=== PATIENT | male | born 1985 | race Caucasian/White ===

== ENCOUNTER 2016-12-02 07:38 | Emergency (ER) | payer MEDICARE, BC, MEDICAID ==
[2016-12-02 07:53] VITALS: BP 115/83
[2016-12-02] MEDS ORDERED: FENTANYL 50 MCG/HR PATCH.TD72 TD ONE (08:22)
--- NOTE | 2016-12-02 08:24 | ER Document Report ---
ED General - General Chief Complaint: Medication Refill Stated Complaint: MEDICATION REFILL Time Seen by Provider: 12/02/16 08:09 TRAVEL OUTSIDE OF THE [place] IN LAST 30 DAYS: No - HPI Patient complains to provider of: Medication refill Notes: Patient coming in for evaluation for medication refill. Patient states he has stage IV cancer as prescribed oral narcotics and fentanyl patches however is missing some of his fentanyl patches. Patient states he removed the spindle patch yesterday currently running out otherwise states having arthralgias and otherwise feeling unwell. Patient states has an appointment to see follow-up with his pain management clinic today. Patient otherwise states no other complaints denies fevers chills nausea vomiting diarrhea. - Related Data Allergies/Adverse Reactions: moxifloxacin HCl [From Avelox] Allergy (Verified 12/02/16 07:52) lorazepam [From Ativan] Adverse Reaction (Verified 12/02/16 07:52) Past Medical History - Social History Smoking Status: Unknown if Ever Smoked Family History: Reviewed & Not Pertinent Pulmonary Medical History: Reports: Hx Asthma Renal/ Medical History: Denies: Hx Peritoneal Dialysis - Immunizations Hx Diphtheria, Pertussis, Tetanus Vaccination: Yes Review of Systems - Review of Systems Constitutional: Other - Medication refill EENT: No symptoms reported Cardiovascular: No symptoms reported Respiratory: No symptoms reported Gastrointestinal: No symptoms reported Genitourinary: No symptoms reported Male Genitourinary: No symptoms reported Musculoskeletal: No symptoms reported Skin: No symptoms reported Hematologic/Lymphatic: No symptoms reported Neurological/Psychological: No symptoms reported Physical Exam - Vital signs Vitals: Temp Pulse Resp BP Pulse Ox 98.4 F 83 18 115/83 95 12/02/16 07:50 12/02/16 07:50 12/02/16 07:50 12/02/16 07:50 12/02/16 07:50 Interpretation: Normal - General General appearance: Appears well, Alert - HEENT Head: Normocephalic, Atraumatic Eyes: Normal Pupils: PERRL - Respiratory Respiratory status: No respiratory distress Chest status: Nontender Breath sounds: Normal Chest palpation: Normal - Cardiovascular Rhythm: Regular Heart sounds: Normal auscultation Murmur: No - Abdominal Inspection: Normal Distension: No distension Bowel sounds: Normal Tenderness: Nontender Organomegaly: No organomegaly - Back Back: Normal, Nontender - Extremities General upper extremity: Normal inspection, Nontender, Normal color, Normal ROM , Normal temperature General lower extremity: Normal inspection, Nontender, Normal color, Normal ROM , Normal temperature, Normal weight bearing. No: Ricardo's sign - Neurological Neuro grossly intact: Yes Cognition: Normal Orientation: AAOx4 [place] Coma Scale Eye Opening: Spontaneous Page Coma Scale Verbal: Oriented [place] Coma Scale Motor: Obeys Commands [place] Coma Scale Total: 15 Speech: Normal Motor strength normal: LUE, RUE, LLE, RLE Sensory: Normal - Psychological Associated symptoms: Normal affect, Normal mood - Skin Skin Temperature: Warm Skin Moisture: Dry Skin Color: Normal Course - Re-evaluation Re-evalutation: 12/02/16 14:04 I examined the patient's torso and found no signs of fentanyl patches. Explained to the patient our analgesia policy and did give him a copy of our pain management policy. I explained to the patient that I will give him one single patch here in the ER to last him for the next 3 days days his responsibility to follow-up with his pain management clinic. Patient states understanding. - Vital Signs Vital signs: Temp Pulse Resp BP Pulse Ox 98.4 F 83 18 115/83 95 12/02/16 07:50 12/02/16 07:50 12/02/16 07:50 12/02/16 07:50 12/02/16 07:50 Discharge - Discharge Clinical Impression: Opiate dependence Qualifiers: Substance use status: uncomplicated Qualified Code(s): F11.20 - Opioid dependence, uncomplicated Disposition: HOME, SELF-CARE Additional Instructions: We do not refill chronic opiate medications here in the ER. I will give you a fentanyl patch for your today please make sure to follow-up with your pain management it is their responsibility to refill and managing your narcotic pain medication.
== END 2016-12-02 08:35 | disposition home or self-care (01) ==
LOC: ER 07:38
DX: F11.20 Opioid dependence, uncomplicated (principal)
CPT/HCPCS: 99281; J3490

== ENCOUNTER 2017-06-16 08:13 | Emergency (ER) | payer MEDICARE, BC, MEDICAID ==
[2017-06-16] MEDS ORDERED: KETOROLAC TROMETHAMINE INJ/PF 30 MG/1 ML SDV IV ONE (08:50)
[2017-06-16 09:02] LABS: ABSOLUTE BASOPHILS # (AUTO) 0.1 10^3/uL (0.0-0.2); ABSOLUTE EOSINOPHILS # (AUTO) 0.4 10^3/uL (0.0-0.6); ABSOLUTE LYMPHOCYTES (AUTO) 1.4 10^3/uL (0.5-4.7); ABSOLUTE MONOCYTES (AUTO) 0.7 10^3/uL (0.1-1.4); ABSOLUTE NEUT (AUTO) 10.2 10^3/uL (1.7-8.2); BASOPHILS % (AUTO) 0.5 % (0-2); EOSINOPHILS % (AUTO) 2.8 % (0-6); HEMATOCRIT 48.8 % (37.9-51.0); HEMOGLOBIN 16.6 g/dL (13.5-17.0); LYMPHOCYTES % (AUTO) 11.3 % (13-45); MEAN CORPUSCULAR HGB CONC 33.9 g/dL (32.0-36.0); MEAN CORPUSCULAR VOLUME 88 fl (80-97); MONOCYTES % (AUTO) 5.5 % (3-13); PLATELET COUNT 215 10^3/uL (150-450); RED BLOOD COUNT 5.52 10^6/uL (4.35-5.55); RED CELL DISTRIBUTION WIDTH 13.5 % (11.5-14.0); SEGMENTED NEUTROPHILS % (AUTO) 79.9 % (42-78); TOTAL CELLS COUNTED % (AUTO) 100 %; WHITE BLOOD COUNT 12.8 10^3/uL (4.0-10.5)
[2017-06-16] MEDS: NORMAL SALINE 1000 ML 1,000 ML IV PRN ×2 (09:02→10:31)
[2017-06-16 09:08] LABS: ANION GAP 12 (5-19); BLOOD UREA NITROGEN 23 mg/dL (7-20); CALCIUM 10.4 mg/dL (8.4-10.2); CARBON DIOXIDE 28 mmol/L (22-30); CHLORIDE 103 mmol/L (98-107); GLUCOSE 121 mg/dL (75-110); POTASSIUM 4.1 mmol/L (3.6-5.0); SODIUM 142.8 mmol/L (137-145)
--- NOTE | 2017-06-16 09:59 | RADIOLOGY REPORT (SQ) ---
EXAM DESCRIPTION: ACUTE ABDOMEN SERIES COMPLETED DATE/TIME: 06/16/2017 9:39 am REASON FOR STUDY: sob COMPARISON: CT abdomen pelvis 03/27/2014 AP chest 09/18/2010 NUMBER OF VIEWS: Three views. TECHNIQUE: Frontal chest, supine abdomen and upright abdomen radiographic images acquired. LIMITATIONS: None. FINDINGS: CHEST: Patient has a left-sided diaphragmatic hernia seen on prior CT exam 03/27/2014. This likely contains colon and small bowel. This is similar compared to studies from 2014. Right lung well inflated and clear. No right or left pneumothorax or pleural effusion FREE AIR: None. No abnormal gas collections. BOWEL GAS PATTERN: Nonobstructive pattern. No dilated loops or air fluid levels. CALCIFICATIONS: No suspicious calcifications. HARDWARE: None in the abdomen. SOFT TISSUES: No gross mass or suggestion of organomegaly. BONES: No acute fracture. No worrisome bone lesions. OTHER: No other significant finding. 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 Abdominal films show no gross bowel obstruction Findings are similar compared to studies from 2014 and 2010 TECHNICAL DOCUMENTATION: JOB ID: [id number] [employer]- All Rights Reserved Reading location - IP/workstation name: [email or web address]
[2017-06-16 10:26] LABS: APPEARANCE,URINE CLOUDY; BILIRUBIN,URINE NEGATIVE (NEGATIVE); COLOR,URINE DARK YELLOW; GLUCOSE, URINE NEGATIVE (NEGATIVE); KETONES,URINE NEGATIVE (NEGATIVE); LEUKOCYTE ESTERASE,URINE NEGATIVE (NEGATIVE); NITRITE,URINE NEGATIVE (NEGATIVE); PROTEIN,URINE 100 mg/dL (NEGATIVE); URINE SPECIFIC GRAVITY 1.025; UROBILINOGEN,URINE NEGATIVE mg/dL (<2.0)
[2017-06-16 10:29] LABS: URINE AMPHETAMINES SCREEN NEGATIVE; URINE BARBITURATES SCREEN NEGATIVE; URINE BENZODIAZEPINES SCREEN NEGATIVE; URINE COCAINE SCREEN NEGATIVE; URINE MARIJUANA (THC) SCREEN NEGATIVE; URINE METHADONE SCREEN NEGATIVE; URINE PHENCYCLIDINE SCREEN NEGATIVE
--- NOTE | 2017-06-16 11:14 | ER Document Report ---
ED General - General Chief Complaint: Abdominal Pain Stated Complaint: ABDOMINAL PAIN Time Seen by Provider: 06/16/17 08:22 TRAVEL OUTSIDE OF THE [place] IN LAST 30 DAYS: No - HPI Patient complains to provider of: Lower abdominal pain Notes: Patient coming in for lower abdominal pain ongoing since 4:00 this morning. Denies any fevers chills nausea vomiting. Patient states the pain is very intense to a Percocet that he has at home. Patient states any difficulty in urination or last few days. Patient resting comfortably upon my evaluation. - Related Data Allergies/Adverse Reactions: moxifloxacin HCl [From Avelox] Allergy (Verified 06/16/17 08:28) lorazepam [From Ativan] Adverse Reaction (Verified 06/16/17 08:28) Past Medical History - Social History Smoking Status: Current Every Day Smoker Frequency of alcohol use: None Drug Abuse: None Family History: Reviewed & Not Pertinent Patient has suicidal ideation: No Patient has homicidal ideation: No Pulmonary Medical History: Reports: Hx Asthma Renal/ Medical History: Denies: Hx Peritoneal Dialysis - Immunizations Hx Diphtheria, Pertussis, Tetanus Vaccination: Yes Review of Systems - Review of Systems Constitutional: No symptoms reported EENT: No symptoms reported Cardiovascular: No symptoms reported Respiratory: No symptoms reported Gastrointestinal: Abdominal pain Genitourinary: No symptoms reported Male Genitourinary: No symptoms reported Musculoskeletal: No symptoms reported Skin: No symptoms reported Hematologic/Lymphatic: No symptoms reported Neurological/Psychological: No symptoms reported -: Yes All other systems reviewed and negative Physical Exam - Vital signs Vitals: Temp Pulse Resp BP Pulse Ox 98.0 F 76 20 127/81 H 97 06/16/17 08:15 06/16/17 08:15 06/16/17 08:15 06/16/17 08:15 06/16/17 08:15 Interpretation: Normal - General General appearance: Appears well, Alert - HEENT Head: Normocephalic, Atraumatic Eyes: Normal Pupils: PERRL - Respiratory Respiratory status: No respiratory distress Chest status: Nontender Breath sounds: Normal Chest palpation: Normal - Cardiovascular Rhythm: Regular Heart sounds: Normal auscultation Murmur: No - Abdominal Inspection: Normal Distension: No distension Bowel sounds: Normal Tenderness: Nontender Organomegaly: No organomegaly - Back Back: Normal, Nontender - Extremities General upper extremity: Normal inspection, Nontender, Normal color, Normal ROM , Normal temperature General lower extremity: Normal inspection, Nontender, Normal color, Normal ROM , Normal temperature, Normal weight bearing. No: Ricardo's sign - Neurological Neuro grossly intact: Yes Cognition: Normal Orientation: AAOx4 [place] Coma Scale Eye Opening: Spontaneous [place] Coma Scale Verbal: Oriented [place] Coma Scale Motor: Obeys Commands [place] Coma Scale Total: 15 Speech: Normal Motor strength normal: LUE, RUE, LLE, RLE Sensory: Normal - Psychological Associated symptoms: Normal affect, Normal mood - Skin Skin Temperature: Warm Skin Moisture: Dry Skin Color: Normal Course - Re-evaluation Re-evalutation: 06/16/17 15:26 The patient presents with abdominal pain without signs of peritonitis or other life-threatening or serious etiology. The patient appears stable for discharge and has been instructed to return immediately if the symptoms worsen in any way , or in 8-12hr if not improved for re-evaluation. The patient has been instructed to return if the symptoms worsen or change in any way. Urinalysis does show signs of hematuria do not no signs of any overt infection. Because of lower abdominal pain hematuria possibility of underlying kidney stone however no renal failure do not see need for a CAT scan at this time. Patient afebrile no signs of urosepsis. Patient will be given Flomax Zofran and encouraged to continue take his prescribed opiate medication. Pain-free after a single dose of ketorolac here. - Vital Signs Vital signs: Temp Pulse Resp BP Pulse Ox 98.0 F 78 20 102/85 98 06/16/17 11:29 06/16/17 11:29 06/16/17 11:29 06/16/17 11:29 06/16/17 11:29 - Laboratory Result Diagrams: 06/16/17 07:55 06/16/17 07:55 Laboratory results interpreted by me: 06/16/17 06/16/17 06/16/17 07:55 07:55 09:32 WBC 12.8 H Seg Neutrophils % 79.9 H Lymphocytes % 11.3 L Absolute Neutrophils 10.2 H BUN 23 H Glucose 121 H Calcium 10.4 H Urine Protein 100 H Urine Blood LARGE H Discharge - Discharge Clinical Impression: Dehydration Hematuria Qualifiers: Hematuria type: unspecified type Qualified Code(s): R31.9 - Hematuria, unspecified Abdominal pain Qualifiers: Abdominal location: unspecified location Qualified Code(s): R10.9 - Unspecified abdominal pain Condition: Good Disposition: HOME, SELF-CARE Instructions: Abdominal Pain ([facility]), Dehydration ([facility]), Hematuria ([facility]) Additional Instructions: Evaluation today is consistent with dehydration. He did have some blood in your urine which can be caused by a kidney stone causing some your pain or hematuria due to dehydration. The only way to prove that you do do not have a kidney stone with to be perform a CAT scan which would involve a lot of radiation. This would not change consultant plan dyspnea with medication Flomax and Zofran. Otherwise there is no signs of overt infection. I recommend that we continue home on medication called Flomax in case there is underlying kidney stone also recommend that wheezing home with medication for nausea. Please continue your home medications as prescribed. Follow-up with your pain management as needed. Prescriptions: Ondansetron [Zofran Odt 4 mg Tablet] 4 mg PO Q4HP PRN #30 tab.rapdis PRN Reason: Tamsulosin HCl [Flomax 0.4 mg Cap.sr] 0.4 mg PO DAILY #10 cap.sr.24h Forms: Return to Work
[2017-06-16 11:42] VITALS: BP 102/85
== END 2017-06-16 11:42 | disposition home or self-care (01) ==
LOC: ER 08:13
DX: R10.30 Lower abdominal pain, unspecified (principal); R31.9 Hematuria, unspecified; E86.0 Dehydration; F17.200 Nicotine dependence, unspecified, uncomplicated; J45.909 Unspecified asthma, uncomplicated; Z88.1 Allergy status to other antibiotic agents
CPT/HCPCS: 99284; 96361; 96374; 36415; 85025; 80048; 81001; 80307; 74022; J1885; J7030

== ENCOUNTER 2017-10-14 13:06 | Emergency (ER) | payer MEDICARE, BC, MEDICAID ==
[2017-10-14 13:32] VITALS: BP 134/91
[2017-10-14 14:37] LABS: APPEARANCE,URINE CLEAR; BILIRUBIN,URINE NEGATIVE (NEGATIVE); COLOR,URINE YELLOW; GLUCOSE, URINE NEGATIVE (NEGATIVE); KETONES,URINE NEGATIVE (NEGATIVE); LEUKOCYTE ESTERASE,URINE NEGATIVE (NEGATIVE); NITRITE,URINE NEGATIVE (NEGATIVE); PROTEIN,URINE NEGATIVE (NEGATIVE); URINE SPECIFIC GRAVITY 1.012; UROBILINOGEN,URINE NEGATIVE mg/dL (<2.0)
--- NOTE | 2017-10-14 15:04 | RADIOLOGY REPORT (SQ) ---
EXAM DESCRIPTION: L SPINE WHOLE COMPLETED DATE/TIME: 10/14/2017 2:52 pm REASON FOR STUDY: back pain COMPARISON: None. NUMBER OF VIEWS: Five views including obliques. TECHNIQUE: AP, lateral, oblique, and sacral radiographic images acquired of the lumbar spine. LIMITATIONS: None. FINDINGS: SEGMENTATION: 5 lumbar type vertebra. ALIGNMENT: Lumbar scoliosis convex left. VERTEBRAE/DISC: Minimal lumbar spondylosis. Degenerative disc disease L4-S1. No spondylolysis or s pondylolisthesis. PELVIS: Intact as visualized. No fractures or worrisome bone lesions. SI joints in tact. IMPRESSION: Lumbar spondylosis and degenerative disc disease L4-S1. TECHNICAL DOCUMENTATION: JOB ID: [id number] [id number] 2010 [employer]- All Rights Reserved Reading location - IP/workstation name: [email or web address]
--- NOTE | 2017-10-14 15:22 | RADIOLOGY REPORT (SQ) ---
EXAM DESCRIPTION: ACUTE ABDOMEN SERIES COMPLETED DATE/TIME: 10/14/2017 3:01 pm REASON FOR STUDY: back pain/constipation COMPARISON: Abdominal series 06/16/2017. CT abdomen and pelvis 03/27/2014. Chest x-ray 09/18/2010 NUMBER OF VIEWS: Three views. TECHNIQUE: Frontal chest, supine abdomen and upright/decubitus abdomen radiographic images acquired. LIMITATIONS: None. FINDINGS: CHEST: Known large mass at the left hemithorax measuring 16.5 x 10.7 cm. No new consolida tion, pleural effusion or pneumothorax. FREE AIR: None. BOWEL GAS PATTERN: Nonobstructive pattern. No dilated loops or air fluid levels. CALCIFICATIONS: No suspicious calcifications. HARDWARE: None in the abdomen. SOFT TISSUES: No gross mass or suggestion of organomegaly. BONES: There is thoracolumbar scoliosis. IMPRESSION: 1. Nonobstructive bowel gas pattern. 2. Known mass at the left hemithorax. TECHNICAL DOCUMENTATION: JOB ID: [id number] 2010 [employer]- All Rights Reserved Reading location - IP/workstation name: [email or web address]
[2017-10-14] MEDS ORDERED: KETOROLAC TROMETHAMINE 60 MG/2 ML SDV IM ONE (15:38)
[2017-10-14] MEDS ORDERED: LIDOCAINE 5% (700 MG) TRANSDERMAL ADH..PATCH TP ONE (15:38)
--- NOTE | 2017-10-14 15:48 | ER Document Report ---
ED General - General Chief Complaint: Back Pain Stated Complaint: BACK PAIN Time Seen by Provider: 10/14/17 14:34 TRAVEL OUTSIDE OF THE [place] IN LAST 30 DAYS: No - HPI Patient complains to provider of: Low back pain Notes: Patient coming in amatory with low back pain. Patient states ongoing for approximate 24-48 hours. Patient states he is concerned as he might have a bowel blockage as he is on chronic opioid therapy taking the Vantin however only has small bowel movement yesterday. Denies any nausea vomiting denies any fevers chills diarrhea loss of bowel or bladder function - Related Data Allergies/Adverse Reactions: moxifloxacin HCl [From Avelox] Allergy (Verified 10/14/17 13:10) lorazepam [From Ativan] Adverse Reaction (Verified 10/14/17 13:10) Past Medical History - Social History Smoking Status: Current Every Day Smoker Chew tobacco use (# tins/day): No Frequency of alcohol use: None Drug Abuse: None Family History: Reviewed & Not Pertinent Patient has suicidal ideation: No Patient has homicidal ideation: No Pulmonary Medical History: Reports: Hx Asthma Renal/ Medical History: Denies: Hx Peritoneal Dialysis - Immunizations Hx Diphtheria, Pertussis, Tetanus Vaccination: Yes Review of Systems - Review of Systems Constitutional: No symptoms reported EENT: No symptoms reported Cardiovascular: No symptoms reported Respiratory: No symptoms reported Gastrointestinal: No symptoms reported Genitourinary: No symptoms reported Male Genitourinary: No symptoms reported Musculoskeletal: Back pain Skin: No symptoms reported Hematologic/Lymphatic: No symptoms reported Neurological/Psychological: No symptoms reported -: Yes All other systems reviewed and negative Physical Exam - Vital signs Vitals: Temp Pulse Resp BP Pulse Ox 98.6 F 75 16 134/91 H 94 10/14/17 13:30 10/14/17 13:30 10/14/17 13:30 10/14/17 13:30 10/14/17 13:30 Interpretation: Normal - General General appearance: Appears well, Alert - HEENT Head: Normocephalic, Atraumatic Eyes: Normal Pupils: PERRL - Respiratory Respiratory status: No respiratory distress Chest status: Nontender Breath sounds: Normal Chest palpation: Normal - Cardiovascular Rhythm: Regular Heart sounds: Normal auscultation Murmur: No - Abdominal Inspection: Normal Distension: No distension Bowel sounds: Normal Tenderness: Nontender Organomegaly: No organomegaly - Back Back: Normal, Tender - Extremities General upper extremity: Normal inspection, Nontender, Normal color, Normal ROM , Normal temperature General lower extremity: Normal inspection, Nontender, Normal color, Normal ROM , Normal temperature, Normal weight bearing. No: Ricardo's sign - Neurological Neuro grossly intact: Yes Cognition: Normal Orientation: AAOx4 [place] Coma Scale Eye Opening: Spontaneous Page Coma Scale Verbal: Oriented [place] Coma Scale Motor: Obeys Commands [place] Coma Scale Total: 15 Speech: Normal Motor strength normal: LUE, RUE, LLE, RLE Sensory: Normal - Psychological Associated symptoms: Normal affect, Normal mood - Skin Skin Temperature: Warm Skin Moisture: Dry Skin Color: Normal Course - Re-evaluation Re-evalutation: 10/14/17 15:48 The patient presents with low back pain without signs of spinal cord compression , cauda equina syndrome, infection, aneurysm, or other serious etiology. The patient is neurologically intact. Given the extremely low risk of these diagnoses further testing and evaluation for these possibilities does not appear to be indicated at this time. The patient has been instructed to return if the symptoms worsen or change in any way. - Vital Signs Vital signs: Temp Pulse Resp BP Pulse Ox 98.6 F 75 16 134/91 H 94 10/14/17 13:30 10/14/17 13:30 10/14/17 13:30 10/14/17 13:30 10/14/17 13:30 Discharge - Discharge Clinical Impression: Back pain Qualifiers: Back pain location: low back pain Chronicity: unspecified Back pain laterality : unspecified Sciatica presence: unspecified whether sciatica present Qualified Code(s): M54.5 - Low back pain Condition: Good Disposition: HOME, SELF-CARE Instructions: Low Back Pain ([facility]) Additional Instructions: Your x-rays today did not show any signs of small bowel obstruction overt constipation. There is a lot of gas throughout the colon itself on the right side there is a mild amount of stool. Please continue to take advantage can make sure you are drinking plenty water if he continues to not have a bowel movement the next 24 hours would recommend trying the [employer]. Also recommend taking Motrin and Tylenol for your pain control as well as her chronic pain medication. Return to ER symptoms worsen follow-up with your primary care physician. Prescriptions: Ibuprofen [Motrin 600 mg Tablet] 600 mg PO Q8HP PRN #21 tablet PRN Reason: Sennosides/Docusate Sodium [Senna-S Tablet] 1 each PO DAILY #14 tablet Forms: Return to Work
== END 2017-10-14 16:02 | disposition home or self-care (01) ==
LOC: ER 13:06
DX: M54.5 Low back pain (principal); F17.200 Nicotine dependence, unspecified, uncomplicated; J45.909 Unspecified asthma, uncomplicated; Z79.891 Long term (current) use of opiate analgesic; Z88.1 Allergy status to other antibiotic agents
CPT/HCPCS: 99283; 96372; 81001; 74022; 72110; J1885

== ENCOUNTER 2017-11-08 20:10 | Emergency (ER) | payer MEDICARE, BC, MEDICAID ==
[2017-11-08 20:28] VITALS: BP 115/74
[2017-11-08] MEDS ORDERED: LIDOCAINE 5% (700 MG) TRANSDERMAL ADH..PATCH TP ONE (22:09)
[2017-11-08] MEDS ORDERED: KETOROLAC TROMETHAMINE 60 MG/2 ML SDV IM ONE (22:10)
--- NOTE | 2017-11-08 22:13 | ER Document Report ---
HPI - HPI Pain Level: 3 Notes: Patient is a 32-year-old male who presents with chief complaint of request for medication refill. Patient reports that he takes oxycodone 15 mg tablets. He reports he takes 2 tablets 3 times daily. Patient reports he sees pain management for these and he took extra so he has run out 2 days early. Patient reports he has already talked to pain management who told him he cannot fill his next prescription until Sunday. Patient reports general pain all over, denies any specific new or acute injury. Patient reports he does think he is in withdrawal. Patient does not have any symptoms of withdrawal at the time of my assessment. Past Medical History - General Information source: Patient - Social History Smoking Status: Current Every Day Smoker Chew tobacco use (# tins/day): No Frequency of alcohol use: None Drug Abuse: None Family History: Reviewed & Not Pertinent Patient has suicidal ideation: No Patient has homicidal ideation: No Pulmonary Medical History: Reports: Hx Asthma Renal/ Medical History: Denies: Hx Peritoneal Dialysis Surgical Hx: Negative - Immunizations Immunizations up to date: Yes Hx Diphtheria, Pertussis, Tetanus Vaccination: Yes Vertical Provider Document - CONSTITUTIONAL Notes: PHYSICAL EXAMINATION: GENERAL: Well-appearing, well-nourished and in no acute distress. HEAD: Atraumatic, normocephalic. EYES: Pupils equal round extraocular movements intact, conjunctiva are normal. ENT: Nares patent NECK: Normal range of motion LUNGS: No respiratory distress Musculoskeletal: Normal range of motion, NEUROLOGICAL: Normal speech, normal gait, no tremor noted. PSYCH: Normal mood, normal affect. SKIN: Warm, Dry, no diaphoresis noted, normal turgor, no rashes or lesions noted. - INFECTION CONTROL TRAVEL OUTSIDE OF THE [place] IN LAST 30 DAYS: No Course - Re-evaluation Re-evalutation: Patient offered Toradol IM as well as a Lidoderm patch. Patient adamantly disagreed with this and kept asking what he should do until Sunday for his pain. Explained to patient our policy on not refilling opioids for chronic pain. Explained to patient that he is not withdrawing at this time as he is not having any symptoms of withdrawal and has a normal exam. Patient discharged in stable condition. - Vital Signs Vital signs: Temp Pulse Resp BP Pulse Ox 98.0 F 71 13 115/74 97 11/08/17 20:24 11/08/17 20:24 11/08/17 20:24 11/08/17 20:24 11/08/17 20:24 Discharge - Discharge Clinical Impression: Medication refill Condition: Stable Disposition: HOME, SELF-CARE Additional Instructions: We do not refill opioid prescriptions in the emergency department nor do we refill medicines for chronic pain. I have ordered you a shot of Toradol and a Lidoderm patch. I suggest you call your pain management provider tomorrow morning to discuss with them the shortage that you have of your oxycodone 15 mg tablets. Referrals: BHUMI EMMANUEL MD [Primary Care Provider] - Follow up as needed
== END 2017-11-08 22:40 | disposition home or self-care (01) ==
LOC: ER 20:10
DX: M79.1 Myalgia (principal); F17.200 Nicotine dependence, unspecified, uncomplicated
CPT/HCPCS: 99281; 96372; J1885

== ENCOUNTER 2017-12-21 15:55 | Emergency (ER) | payer MEDICARE, BC, MEDICAID ==
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
--- NOTE | 2017-12-21 16:47 | RADIOLOGY REPORT (SQ) ---
EXAM DESCRIPTION: CHEST 2 VIEWS COMPLETED DATE/TIME: 12/21/2017 4:39 pm REASON FOR STUDY: Cough COMPARISON: 09/18/2010 EXAM PARAMETERS: NUMBER OF VIEWS: two views TECHNIQUE: Digital Frontal and Lateral radiographic views of the chest acquired. RADIATION DOSE: NA LIMITATIONS: none FINDINGS: LUNGS AND PLEURA: Large left lung mass. May be slightly more prominent than on the earlie r study. No pulmonary infiltrates or pleural effusions. MEDIASTINUM AND HILAR STRUCTURES: No masses or contour abnormalities. HEART AND VASCULAR STRUCTURES: Heart normal size. No evidence for failure. BONES: No acute findings. HARDWARE: None in the chest. OTHER: No other significant finding. IMPRESSION: Large left lung mass may be slightly more prominent. No other interval change. TECHNICAL DOCUMENTATION: JOB ID: [id number] [employer]- All Rights Reserved Reading location - IP/workstation name: [email or web address]
[2017-12-21] MEDS ORDERED: HYDROMORPHONE HCL INJ/PF 2 MG/ML AMPULE IV ONE (17:24)
[2017-12-21] MEDS ORDERED: NORMAL SALINE 1000 ML 1,000 ML IV ONE (17:24)
[2017-12-21] MEDS ORDERED: ONDANSETRON HCL INJ/PF 4 MG/2 ML SDV IV ONE (17:25)
--- NOTE | 2017-12-21 17:32 | RADIOLOGY REPORT (SQ) ---
EXAM DESCRIPTION: CT CHEST WITHOUT COMPLETED DATE/TIME: 12/21/2017 4:59 pm REASON FOR STUDY: Lung mass COMPARISON: Chest radiographs 12/21/2017 and 09/18/2010 TECHNIQUE: CT scan performed of the chest without intravenous contrast. Images reviewed with lung, soft tissue and bone windows. Reconstructed coronal and sagittal MPR images reviewed. All images st ored on PACS. All CT scanners at this facility use dose modulation, iterative reconstruction, and/or weight based d osing when appropriate to reduce radiation dose to as low as reasonably achievable (ALARA). [facility]: Dose Right [facility]: CareDose [facility]: Dose Right [facility]: Teradose 4D [facility]: Smart Technologies RADIATION DOSE: CT Rad equipment meets quality standard of care and radiation dose reduction techniq ues were employed. CTDIvol: 10.3 mGy. DLP: 450 mGy-cm. mGy. LIMITATIONS: No technical limitations. FINDINGS: LUNGS AND PLEURA: Re- demonstration of large mass, favored to originate within the mediast inum, in exerting mass effect upon the left upper lobe. This lesion measures on the order of 9.6 x 1 4.6 x 15.1 cm and the lungs are otherwise clear. No pneumothorax. No pleural effusion. Demonstrate s heterogeneous attenuation ranging from fat to calcium. HILAR AND MEDIASTINAL STRUCTURES: Apart from above findings, the mediastinum is unremarkable. HEART AND VASCULAR STRUCTURES: A small pericardial effusion may be present. UPPER ABDOMEN: No significant findings. Specifically, no retroperitoneal masses of the upper abdomen . Incidental note is made of a retroaortic left renal vein. THYROID AND OTHER SOFT TISSUES: No masses. No adenopathy. BONES: No significant finding. HARDWARE: None in the chest. OTHER: No other significant findings. IMPRESSION: 9.6 x 14.6 x 15.1 cm heterogeneous mass which appears to arise from the mediastinum. 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 A teratoma would have a similar torrie earance. No acute findings. TECHNICAL DOCUMENTATION: JOB ID: [id number] Quality ID # [id number]: Final reports with documentation of one or more dose reduction techniques (e.g., Au tomated exposure control, adjustment of the mA and/or kV according to patient size, use of iterative reconstruction technique) 2010 [employer]- All Rights Reserved Reading location - IP/workstation name: [email or web address]
[2017-12-21 17:50] LABS: ABSOLUTE BASOPHILS # (AUTO) 0.1 10^3/uL (0.0-0.2); ABSOLUTE LYMPHOCYTES (AUTO) 1.8 10^3/uL (0.5-4.7); ABSOLUTE MONOCYTES (AUTO) 0.9 10^3/uL (0.1-1.4); ABSOLUTE NEUT (AUTO) 9.1 10^3/uL (1.7-8.2); BASOPHILS % (AUTO) 0.8 % (0-2); EOSINOPHILS % (AUTO) 0.4 % (0-6); LYMPHOCYTES % (AUTO) 15.2 % (13-45); MEAN CORPUSCULAR HEMOGLOBIN 30.2 pg (27.0-33.4); MEAN CORPUSCULAR HGB CONC 34.5 g/dL (32.0-36.0); MEAN CORPUSCULAR VOLUME 87 fl (80-97); MONOCYTES % (AUTO) 7.6 % (3-13); PLATELET COUNT 307 10^3/uL (150-450); RED BLOOD COUNT 5.95 10^6/uL (4.35-5.55); RED CELL DISTRIBUTION WIDTH 13.7 % (11.5-14.0); TOTAL CELLS COUNTED % (AUTO) 100 %
[2017-12-21 18:18] LABS: ALANINE AMINOTRANSFERASE 29 U/L (21-72); ALBUMIN 4.9 g/dL (3.5-5.0); ALKALINE PHOSPHATASE 100 U/L (38-126); ANION GAP 14 (5-19); ASPARTATE AMINO TRANSFERASE 19 U/L (17-59); BILIRUBIN,DIRECT 0.5 mg/dL (0.0-0.4); BILIRUBIN,TOTAL 1.1 mg/dL (0.2-1.3); BLOOD UREA NITROGEN 35 mg/dL (7-20); CALCIUM 10.8 mg/dL (8.4-10.2); CARBON DIOXIDE 25 mmol/L (22-30); CHLORIDE 101 mmol/L (98-107); GLUCOSE 84 mg/dL (75-110); POTASSIUM 4.3 mmol/L (3.6-5.0); SODIUM 139.9 mmol/L (137-145)
--- NOTE | 2017-12-21 19:10 | ER Document Report ---
ED General - General Chief Complaint: Cough Stated Complaint: PAINFUL BREATHING Time Seen by Provider: 12/21/17 16:20 Mode of Arrival: Ambulatory Notes: Patient is a 32-year-old male that presents to the emergency department for chief complaint of pain all over and shortness of breath and cough. 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 He is also been having a cough and feeling a little more short of breath of the last week, he has not followed up in regards to the seminoma in several years, and is not sure if he still in remission, as far as he knows he was. Denies any history of CAD, DVT or blood clots or pulmonary embolism. He states the pain that he has in his chest is worse with a deep breath. And is on the left side which is where his seminoma is. He also states he has a history of asthma but has not had an inhaler in some time and has been having some congestion symptoms as well. Denies having any fevers, chills, night sweats, nausea, vomiting, abdominal pain, dysuria or hematuria. Past Medical History: Left lung seminoma, asthma Past Surgical History: IVC filter and removal Social History: Former smoker, denies alcohol or drug use Family History: Reviewed and noncontributory for presenting illness Allergies: Reviewed, see documented allergy list. REVIEW OF SYSTEMS: Unless otherwise stated in this report the patient's positive and negative responses for review of systems for constitutional, eyes, ENT, cardiovascular, respiratory, gastrointestinal, neurological, genitourinary, musculoskeletal, and integumentary systems and related systems to the presenting problem are either as stated in the HPI or were not pertinent or were negative for the symptoms and/or complaints related to the presenting medical problem. PHYSICAL EXAMINATION: Vital signs reviewed, nursing noted reviewed. GENERAL: Well-appearing, well-nourished and in no acute distress. HEAD: Atraumatic, normocephalic. EYES: Eyes appear normal, extraocular movements intact, sclera anicteric, conjunctiva are normal. ENT: nares patent, oropharynx clear without exudates. Moist mucous membranes. NECK: Normal range of motion, supple without lymphadenopathy LUNGS: Diminished lung sounds on the left compared to the right, otherwise breath sounds clear to auscultation bilaterally .No wheezes rales or rhonchi. HEART: Regular rate and rhythm without murmurs ABDOMEN: Soft, nontender, normoactive bowel sounds. No rebound, guarding, or rigidity. No masses appreciated. EXTREMITIES: Nontender, good range of motion, no pitting or edema. NEUROLOGICAL: No focal neurological deficits. Moves all extremities spontaneously Motor and sensory grossly intact on exam. PSYCH: Appears anxious, but appropriate SKIN: Warm, Dry, normal turgor, no rashes or lesions noted on exposed skin TRAVEL OUTSIDE OF THE [place] IN LAST 30 DAYS: No - Related Data Allergies/Adverse Reactions: moxifloxacin HCl [From Avelox] Allergy (Verified 10/14/17 13:10) lorazepam [From Ativan] Adverse Reaction (Verified 10/14/17 13:10) Past Medical History - General Information source: Patient - Social History Smoking Status: Current Every Day Smoker Cigarette use (# per day): No Chew tobacco use (# tins/day): No Frequency of alcohol use: Rare Drug Abuse: None Lives with: Family Family History: Reviewed & Not Pertinent Patient has suicidal ideation: No Patient has homicidal ideation: No Pulmonary Medical History: Reports: Hx Asthma Renal/ Medical History: Denies: Hx Peritoneal Dialysis - Immunizations Immunizations up to date: Yes Hx Diphtheria, Pertussis, Tetanus Vaccination: Yes Physical Exam - Vital signs Vitals: Temp Pulse Resp BP Pulse Ox 98.5 F 81 18 126/86 H 96 12/21/17 16:03 12/21/17 16:03 12/21/17 16:03 12/21/17 16:03 12/21/17 16:03 Course - Re-evaluation Re-evalutation: Patient seen and examined vital signs reviewed. Laboratory data and imaging were ordered as appropriate for the patient's presenting symptoms and complaint, with consideration of any critical or life threatening conditions that may be associated with their obtained history and exam as noted above. 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 Rajput, she stated she would like to see the patient, and this was discussed with him as well and he stated he would like to follow-up with her as it is closer for him as opposed to in [place]. He was also discharged home with a short prescription for oxycodone so that he can get through the weekend to follow-up with pain management on Sunday, patient was agreeable to this, he was given an albuterol inhaler as well, as it sounds like he may be having some bronchitis symptoms. The patient was re-evaluated and was improved after treatment Evaluation was most consistent with bronchitis, and pleuritic pain due to large teratoma in the left chest, patient will follow up with oncology as noted above. Results were discussed with the patient at this point, after careful consideration I feel that that patient can be discharged from the emergency department, the patient was educated treatments and reasons to return to the emergency department based on their presumed diagnosis as noted above, they were advised to followup with a primary care physician in 2-3 days. Patient was agreeable to plan of care. *Note is created using voice recognition software and may contain spelling, syntax or grammatical errors. Laboratory 12/21/17 12/21/17 17:34 17:34 WBC 12.0 H RBC 5.95 H Hgb 18.0 H Hct 52.0 H MCV 87 MCH 30.2 MCHC 34.5 RDW 13.7 Plt Count 307 Seg Neutrophils % 76.0 Lymphocytes % 15.2 Monocytes % 7.6 Eosinophils % 0.4 Basophils % 0.8 Absolute Neutrophils 9.1 H Absolute Lymphocytes 1.8 Absolute Monocytes 0.9 Absolute Eosinophils 0.0 Absolute Basophils 0.1 Sodium 139.9 Potassium 4.3 Chloride 101 Carbon Dioxide 25 Anion Gap 14 BUN 35 H Creatinine 1.07 Est GFR ( Amer) > 60 Est GFR (Non-Af Amer) > 60 Glucose 84 Calcium 10.8 H Total Bilirubin 1.1 Direct Bilirubin 0.5 H Neonat Total Bilirubin Not Reportable Neonat Direct Bilirubin Not Reportable Neonat Indirect Bili Not Reportable AST 19 ALT 29 Alkaline Phosphatase 100 Total Protein 9.0 H Albumin 4.9 Beta HCG, Quant < 2.39 Total Beta HCG NEGATIVE Chest X-Ray 12/21/17 16:20 IMPRESSION: Large left lung mass may be slightly more prominent. No other interval change. Chest CT 12/21/17 16:46 IMPRESSION: 9.6 x 14.6 x 15.1 cm heterogeneous mass which appears to arise from the mediastinum. 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 A teratoma would have a similar appearance. No acute findings. - Vital Signs Vital signs: Temp Pulse Resp BP Pulse Ox 98.5 F 81 13 110/83 96 12/21/17 19:42 12/21/17 16:03 12/21/17 19:28 12/21/17 19:28 12/21/17 19:28 - Laboratory Result Diagrams: 12/21/17 17:34 12/21/17 17:34 Laboratory results interpreted by me: 12/21/17 12/21/17 17:34 17:34 WBC 12.0 H RBC 5.95 H Hgb 18.0 H Hct 52.0 H Absolute Neutrophils 9.1 H BUN 35 H Calcium 10.8 H Direct Bilirubin 0.5 H Total Protein 9.0 H Discharge - Discharge Clinical Impression: Shortness of breath, Generalized pain, Bronchitis, Germ cell tumor Condition: Stable Disposition: HOME, SELF-CARE Instructions: Bronchitis ([facility]) Additional Instructions: Please follow-up with Dr. Rajput with oncology, if your symptoms do not improve or worsen, do not hesitate to return to the emergency department. Prescriptions: Albuterol Sulfate [Proair HFA] 2 puff IH Q4 PRN #1 inhaler PRN Reason: wheezing, shortness of breath Oxycodone HCl 15 mg PO TID 4 Days #12 tablet Referrals: BHUMI EMMANUEL MD [ACTIVE STAFF] - Follow up in 3-5 days HARMAN RAJPUT MD [ACTIVE STAFF] - Follow up in 3-5 days (call on Sunday. )
[2017-12-21 19:34] VITALS: BP 110/83
== END 2017-12-21 19:42 | disposition home or self-care (01) ==
LOC: ER 15:55
DX: C34.92 Malignant neoplasm of unspecified part of left bronchus or lung (principal); R06.00 Dyspnea, unspecified; R05 Cough; J40 Bronchitis, not specified as acute or chronic; R06.02 Shortness of breath; R52 Pain, unspecified; F17.200 Nicotine dependence, unspecified, uncomplicated
CPT/HCPCS: 99284; 96361; 96374; 96375; 36415; 84702; 83615; 85025; 80053; 82105; 71046; 71250; J1170; J2405

== ENCOUNTER 2018-06-19 14:40 | Emergency (ER) | payer MEDICARE, BC, MEDICAID ==
--- NOTE | 2018-06-19 15:51 | ER Document Report ---
ED Medical Screen (RME) - General Chief Complaint: Chest Pain Stated Complaint: CHEST PAIN, SOB Time Seen by Provider: 06/19/18 15:45 Notes: Patient is a 33-year-old male with history of germ cell tumor in the lung that presents to the emergency department for chief complaint of chest pain and shortness of breath and cough. Patient reports having symptoms for some time, one-point was seen by urgent care and placed on doxycycline without improvement of his symptoms, still complaining of some chest pain on the right side. ROS: Other than noted above, the 12 point review of systems was reviewed with the patient and were negative, all pertinent findings are included in the HPI. PHYSICAL EXAMINATION: Vital signs reviewed. GENERAL: Well-appearing, well-nourished and in no acute distress. HEAD: Atraumatic, normocephalic. EYES: Pupils equal round extraocular movements intact, conjunctiva are normal. ENT: Nares patent NECK: Normal range of motion CV: Heart regular rate and rhythm LUNGS: No respiratory distress, expiratory wheezing noted in all lung hyman Musculoskeletal: Normal range of motion NEUROLOGICAL: Normal speech PSYCH: Normal mood, normal affect. MDM: Patient seen and examined for rapid initial assessment. Vital signs reviewed. A comprehensive ED assessment and evaluation of the patient, analysis of test results and completion of the medical decision making process will be conducted by additional ED providers. *Note is created using voice recognition software and may contain spelling, syntax or grammatical errors. TRAVEL OUTSIDE OF THE [place] IN LAST 30 DAYS: No - Related Data Allergies/Adverse Reactions: moxifloxacin HCl [From Avelox] Allergy (Verified 06/19/18 15:55) lorazepam [From Ativan] Adverse Reaction (Verified 06/19/18 15:55) Past Medical History - Social History Chew tobacco use (# tins/day): No Frequency of alcohol use: None Drug Abuse: None Pulmonary Medical History: Reports: Hx Asthma Renal/ Medical History: Denies: Hx Peritoneal Dialysis - Immunizations Immunizations up to date: Yes Hx Diphtheria, Pertussis, Tetanus Vaccination: Yes Physical Exam - Vital signs Vitals: Temp Pulse Resp BP Pulse Ox 98.3 F 97 20 130/86 H 98 06/19/18 14:59 06/19/18 14:59 06/19/18 14:59 06/19/18 14:59 06/19/18 14:59 Course - Vital Signs Vital signs: Temp Pulse Resp BP Pulse Ox 98.3 F 97 20 130/86 H 98 06/19/18 14:59 06/19/18 14:59 06/19/18 14:59 06/19/18 14:59 06/19/18 14:59
[2018-06-19] MEDS ORDERED: IPRATROPIUM/ALBUTEROL 0.5-2.5 MG/3 ML AMPUL NEB ONE (15:53)
[2018-06-19 16:23] LABS: ABSOLUTE BASOPHILS # (AUTO) 0.1 10^3/uL (0.0-0.2); ABSOLUTE EOSINOPHILS # (AUTO) 0.6 10^3/uL (0.0-0.6); ABSOLUTE LYMPHOCYTES (AUTO) 1.1 10^3/uL (0.5-4.7); ABSOLUTE MONOCYTES (AUTO) 0.7 10^3/uL (0.1-1.4); BASOPHILS % (AUTO) 0.8 % (0-2); EOSINOPHILS % (AUTO) 6.6 % (0-6); HEMATOCRIT 39.8 % (37.9-51.0); HEMOGLOBIN 13.9 g/dL (13.5-17.0); MEAN CORPUSCULAR HEMOGLOBIN 29.4 pg (27.0-33.4); MEAN CORPUSCULAR HGB CONC 34.8 g/dL (32.0-36.0); MEAN CORPUSCULAR VOLUME 84 fl (80-97); MONOCYTES % (AUTO) 6.9 % (3-13); PLATELET COUNT 261 10^3/uL (150-450); RED BLOOD COUNT 4.72 10^6/uL (4.35-5.55); RED CELL DISTRIBUTION WIDTH 14.4 % (11.5-14.0); SEGMENTED NEUTROPHILS % (AUTO) 73.7 % (42-78); TOTAL CELLS COUNTED % (AUTO) 100 %; WHITE BLOOD COUNT 9.5 10^3/uL (4.0-10.5)
--- NOTE | 2018-06-19 16:29 | RADIOLOGY REPORT (SQ) ---
EXAM DESCRIPTION: CHEST 2 VIEWS COMPLETED DATE/TIME: 06/19/2018 4:20 pm REASON FOR STUDY: cough short of breath COMPARISON: 12/21/2017. EXAM PARAMETERS: NUMBER OF VIEWS: two views TECHNIQUE: Digital Frontal and Lateral radiographic views of the chest acquired. RADIATION DOSE: NA LIMITATIONS: none FINDINGS: LUNGS AND PLEURA: Large mass in the left lung appears unchanged. Right lung clear. No pl eural effusion. No pneumothorax. MEDIASTINUM AND HILAR STRUCTURES: No masses or contour abnormalities. HEART AND VASCULAR STRUCTURES: Heart normal size. No evidence for failure. BONES: No acute findings. HARDWARE: None in the chest. OTHER: No other significant finding. IMPRESSION: NO SIGNIFICANT CHANGE IN THE LARGE MASS IN THE LEFT LUNG. NO ACUTE RADIOGRAPHIC FINDING IN THE CHEST. TECHNICAL DOCUMENTATION: JOB ID: [id number] [employer]- All Rights Reserved Reading location - IP/workstation name: [email or web address]
[2018-06-19 16:41] LABS: ALANINE AMINOTRANSFERASE 29 U/L (21-72); ALBUMIN 4.5 g/dL (3.5-5.0); ALKALINE PHOSPHATASE 96 U/L (38-126); ANION GAP 12 (5-19); ASPARTATE AMINO TRANSFERASE 18 U/L (17-59); BILIRUBIN,DIRECT 0.4 mg/dL (0.0-0.4); BILIRUBIN,TOTAL 0.7 mg/dL (0.2-1.3); BLOOD UREA NITROGEN 23 mg/dL (7-20); CALCIUM 10.5 mg/dL (8.4-10.2); CARBON DIOXIDE 25 mmol/L (22-30); CHLORIDE 103 mmol/L (98-107); GLUCOSE 96 mg/dL (75-110); POTASSIUM 4.7 mmol/L (3.6-5.0); SODIUM 139.5 mmol/L (137-145); TOTAL PROTEIN 8.4 g/dL (6.3-8.2)
--- NOTE | 2018-06-19 17:15 | ER Document Report ---
ED General - General Chief Complaint: Chest Pain Stated Complaint: CHEST PAIN, SOB Time Seen by Provider: 06/19/18 15:45 TRAVEL OUTSIDE OF THE [place] IN LAST 30 DAYS: No - HPI Notes: Patient presents emergency department for evaluation of right-sided chest pain. He states it has been present for the last several weeks. He described it as a tightness but is occasionally more sharp. He describes some associated shortness of breath. He also states he feels as if his heart is racing with any sort of exertion. He has had a minor cough. He was seen at an urgent care and treated with doxycycline, had no significant relief of the symptoms. 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 His oncology left the practice in [place] where he had been being seen, he has not seen oncology in over a year. No known fevers. He does get some relief from his pain with the oxycodone that he is prescribed. He is not currently seeing a regular physician. - Related Data Allergies/Adverse Reactions: moxifloxacin HCl [From Avelox] Allergy (Verified 06/19/18 15:55) lorazepam [From Ativan] Adverse Reaction (Verified 06/19/18 15:55) Past Medical History - General Information source: Patient - Social History Smoking Status: Former Smoker Chew tobacco use (# tins/day): No Frequency of alcohol use: None Drug Abuse: None Family History: Reviewed & Not Pertinent Patient has suicidal ideation: No Patient has homicidal ideation: No Pulmonary Medical History: Reports: Hx Asthma Renal/ Medical History: Denies: Hx Peritoneal Dialysis - Immunizations Immunizations up to date: Yes Hx Diphtheria, Pertussis, Tetanus Vaccination: Yes Review of Systems - Review of Systems Constitutional: No symptoms reported EENT: No symptoms reported Cardiovascular: See HPI Respiratory: See HPI Gastrointestinal: No symptoms reported Musculoskeletal: No symptoms reported Skin: No symptoms reported Neurological/Psychological: No symptoms reported Physical Exam - Vital signs Vitals: Temp Pulse Resp BP Pulse Ox 98.3 F 97 20 130/86 H 98 06/19/18 14:59 06/19/18 14:59 06/19/18 14:59 06/19/18 14:59 06/19/18 14:59 - Notes Notes: Vital signs reviewed, please refer to chart. Patient is normocephalic, atraumatic. Pupils equal round, reactive to light. Neck is supple without meni ngismus. He does have well-healed tracheostomy scar noted without surrounding erythema. Heart is regular rate and rhythm. Lungs are clear to auscultation bilaterally, but diminished breath sounds in the left base. Chest wall nontender abdomen is soft, nontender, normoactive bowel sounds throughout. Extremities without cyanosis, clubbing, edema. Peripheral pulses are equal. Skin is warm and dry. Patient is awake, alert, neurological exam is nonfocal. Course - Re-evaluation Re-evalutation: 06/19/18 17:14 Patient presents to the emergency department for evaluation. He had initial orders as placed by triage physician. Given his malignancy history, we did talk extensively about the need for follow-up. The patient appears to have significantly poor insight into his history of disease and the need for continued care. I am concerned about the possibility of pulmonary embolus in this patient. I did discuss this with him. His laboratory visitations are unremarkable, chest x-ray reveals no significant changes. CT angiogram ordered, will place patient on the monitor and continue to follow. 06/19/18 20:[address] scan are extremely concerning. Mass is increased in size. There is significant malignant potential at this point. Patient remained stable throughout the course of his stay. His pain has been helped by his chronic pain medication. Findings were communicated to him. We did talk about the possibility of this becoming another malignancy. We voiced understanding to this. I did explain to him that I did not hear wheezing on his exam, but he states he had been wheezing earlier. I will go ahead and treat him with some albuterol as well I then spoke with Dr. Blood. He will be happy to see this young gentleman as an outpatient and make the appropriate referrals to CT surgery. This information was communicated to the patient. He is to continue his pain medication as written by [place] [facility]. He is to return to the ED with worsening or new concerning symptoms. 06/19/18 20:44 - Vital Signs Vital signs: Temp Pulse Resp BP Pulse Ox 98.3 F 97 16 108/79 95 06/19/18 14:59 06/19/18 14:59 06/19/18 20:16 06/19/18 20:16 06/19/18 20:15 - Laboratory Result Diagrams: 06/19/18 16:09 06/19/18 16:09 Laboratory results interpreted by me: 06/19/18 06/19/18 16:09 16:09 RDW 14.4 H Lymphocytes % 12.0 L Eosinophils % 6.6 H BUN 23 H Calcium 10.5 H Total Protein 8.4 H Discharge - Discharge Clinical Impression: Chest pain, Germ cell tumor of mediastinum Condition: Stable Disposition: HOME, SELF-CARE Additional Instructions: The mass in your chest currently measures 17.3 cm x 16.7 cm. This is an increase in size. You need to follow-up with Dr. Blood as discussed. Call his office tomorrow to set up an appointment. Continue your medications as prescribed. Use albuterol inhaler, 1-2 puffs every 6 hours as needed. Return to the emergency department with worsening or new concerning symptoms of any sort. Referrals: PILO BLOOD MD [ACTIVE STAFF] - Follow up as needed
--- NOTE | 2018-06-19 19:47 | RADIOLOGY REPORT (SQ) ---
EXAM DESCRIPTION: CTA CHEST COMPLETED DATE/TIME: 06/19/2018 7:14 pm REASON FOR STUDY: R chest pain, r/o PE COMPARISON: 12/21/2017 TECHNIQUE: CT scan of the chest performed using helical scanning technique with dynamic intravenous contrast injection. Images reviewed with lung, soft tissue and bone windows. Reconstructed coronal and sagittal MPR images reviewed. Additional 3 dimensional post-processing performed to develop Maximal Intensity Projection images (VT P). All images stored on PACS. All CT scanners at this facility use dose modulation, iterative reconstruction, and/or weight based d osing when appropriate to reduce radiation dose to as low as reasonably achievable (ALARA). [facility]: Dose Right [facility]: CareDose [facility]: Dose Right [facility]: Teradose 4D [facility]: KuponGid CONTRAST TYPE AND DOSE: contrast/concentration: Isovue 350.00 mg/ml; Total Contrast Delivered: 83.0 ml; Total Saline Delivered: 110.0 ml Contrast bolus optimized for the pulmonary arteries. Not diagnostic for the aorta. RENAL FUNCTION: GFR > 60. RADIATION DOSE: CT Rad equipment meets quality standard of care and radiation dose reduction techniq ues were employed. CTDIvol: 18.9 - 52.9 mGy. DLP: 727 mGy-cm. . LIMITATIONS: None. FINDINGS: LUNGS AND PLEURA: Increased size of the left hemithorax heterogeneous mass -teratoma measu ring approximately 17.3 cm in craniocaudad dimension and 16.7 cm in AP dimension, this measured 16.4 and 15.2 cm in similar dimension on the November 2017 exam. The mass also demonstrates increased fl uid density and fat stranding internally with some irregular margins. The mass has broad base contac t with the mediastinum and compresses the left hilus, airway is narrowed but remains patent centrally . 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 Right lung shows some paraseptal emphysema and chronic interstitial changes. No consolidation or pleural effusion. AORTA AND GREAT VESSELS: No aneurysm. Contrast bolus not optimized for the aorta. HEART: Increased moderate pericardial effusion. No significant coronary artery calcifications. PULMONARY ARTERIES: No emboli visualized in the main pulmonary arteries or the segmental branches. HILAR AND MEDIASTINAL STRUCTURES: There are small mediastinal-cardiophrenic nodes. HARDWARE: None in the chest. UPPER ABDOMEN: No significant findings. Limited exam. THYROID AND OTHER SOFT TISSUES: No masses. No adenopathy. BONES: No acute or significant finding. 3D MIPS: Confirm above findings. OTHER: No other significant finding. IMPRESSION: No emboli visualized in the main pulmonary arteries or the segmental branches. Increased size of the left hemithorax heterogeneous mass -teratoma measuring approximately 17.3 cm in craniocaudad dimension and 16.7 cm in AP dimension, this measured 16.4 and 15.2 cm in similar dimens ion on the November 2017 exam. The mass also demonstrates increased fluid density and fat stranding internally with some irregular margins, correlate clinically to exclude infection. Given the increa sed size overall an change in appearance, I would consider surgical consultation and consider additio nal evaluation to exclude increased metabolic activity- malignant transformation. Increased moderate pericardial effusion. COMMENT: Quality ID # [id number]: Final reports with documentation of one or more dose reduction techniques (e.g., Automated exposure control, adjustment of the mA and/or kV according to patient size, use of iterative reconstruction technique) TECHNICAL DOCUMENTATION: JOB ID: [id number] [place]-72 2010 [employer]- All Rights Reserved Reading location - IP/workstation name: [employer]
[2018-06-19] MEDS ORDERED: OXYCODONE HCL IR 5 MG TABLET PO ONE (19:56)
[2018-06-19] MEDS ORDERED: ALBUTEROL SULFATE HFA (90 MCG/PUFF) 8 GM MDI (1 MDI/ER DISP) IH SCH (20:45)
[2018-06-19 21:02] VITALS: BP 124/86
--- NOTE | 2018-06-19 21:22 | EKG REPORT ---
SEVERITY:- OTHERWISE NORMAL ECG - SINUS RHYTHM VENTRICULAR PREMATURE COMPLEX : Confirmed by: Madhuri Gross MD 19-Jun-2018 21:21:57
== END 2018-06-19 21:08 | disposition home or self-care (01) ==
LOC: ER 14:40
DX: C38.3 Malignant neoplasm of mediastinum, part unspecified (principal); R07.89 Other chest pain; J45.909 Unspecified asthma, uncomplicated; R06.02 Shortness of breath; R05 Cough; G89.29 Other chronic pain; Z79.891 Long term (current) use of opiate analgesic; Z88.1 Allergy status to other antibiotic agents; Z87.891 Personal history of nicotine dependence
CPT/HCPCS: 93005; 94640; 99285; 36415; 85025; 80053; 71046; 84484; 71275; 93010; A9270 ×2; J3490; J7620